=== PATIENT | female | born 2000 | race African-American/Black ===

== ENCOUNTER 2018-09-28 19:16 | Emergency (ER) | payer MEDICAID ==
[~2018-09-28] VITALS: Ht 157.5 cm; Wt 67.8 kg
[2018-09-28 21:37] VITALS: BP 112/60
[2018-09-28] MEDS ORDERED: ACETAMINOPHEN 325MG TABLET PO ONE (22:00)
== END 2018-09-28 23:20 | disposition home or self-care (01) ==
LOC: ER 19:16
DX: M25.512 Pain in left shoulder (principal); M25.552 Pain in left hip; M54.2 Cervicalgia; M54.5 Low back pain; F12.10 Cannabis abuse, uncomplicated; V79.50XA Passenger on bus injured in collision with unspecified motor vehicles in traffic accident, initial encounter; Y93.89 Activity, other specified; Y92.488 Other paved roadways as the place of occurrence of the external cause
CPT/HCPCS: 73030; 73502; 81025; 99283

== ENCOUNTER 2019-02-08 04:58 | Emergency (ER) | payer MEDICAID ==
[~2019-02-08] VITALS: Ht 157.5 cm; Wt 67.0 kg
[2019-02-08] MEDS ORDERED: FAMOTIDINE 20MG/2ML VIAL IV STA (07:28)
[2019-02-08] MEDS ORDERED: ONDANSETRON HCL 4MG/2ML INJ IV STA (07:28)
[2019-02-08] MEDS ORDERED: SODIUM CHLORIDE 0.9% 1,000 ML IV ONE (07:28)
[2019-02-08 07:31] LABS: COLOR URINE YELLOW (YELLOW); KETONES URINE NEGATIVE (NEGATIVE); LEUKOCYTE ESTERASE URINE NEGATIVE (NEGATIVE); NITRITE URINE NEGATIVE (NEGATIVE); OCCULT BLOOD URINE NEGATIVE (NEGATIVE); PROTEIN URINE NEGATIVE (NEGATIVE); SPECIFIC GRAVITY URINE 1.029 (1.005-1.030); UROBILINOGEN URINE 0.2 E.U./dL (0.2-1.0)
[2019-02-08 07:51] LABS: CLARITY URINE SL HAZY (CLEAR)
[2019-02-08] MEDS ORDERED: KETOROLAC 30MG/ML VIAL IV ONE (08:15)
[2019-02-08 08:16] LABS: BASOPHILS % 0.3 % (0.0-2.0); EOSINOPHILS % 1.7 % (0.0-5.0); HEMOGLOBIN. 14.7 g/dL (12.0-16.0); LYMPHOCYTES % 11.6 % (20.0-50.0); MEAN CORPUSCULAR HEMOGLOBIN 29.6 pg (28.0-32.0); MEAN CORPUSCULAR VOLUME 86.5 fL (81.0-99.0); MEAN PLATELET VOLUME 8.8 fl (7.4-10.4); MONOCYTES % 6.5 % (2.0-8.0); NEUTROPHILS % 79.9 % (40.0-76.0); PLATELET 276 x1000/uL (130-400); RED BLOOD CELL COUNT 4.97 mill/uL (4.2-5.4); RED CELL DISTRIBUTION WIDTH 13.6 % (11.6-14.6)
[2019-02-08 08:17] LABS: PROTHROMBIN TIME 10.2 sec (9.6-11.0)
[2019-02-08 08:23] LABS: CHLORIDE 109 mEq/L (98-107); HCG SCREEN NEGATIVE
[2019-02-08] MEDS ORDERED: MAGNESIUM/ALUMINUM HYDROXIDE/SIMETHICONE 30ML UDC PO ONE (11:15)
[2019-02-08 11:16] VITALS: BP 100/60
== END 2019-02-08 11:17 | disposition home or self-care (01) ==
LOC: ER 05:47
DX: R10.30 Lower abdominal pain, unspecified (principal); R11.10 Vomiting, unspecified; R19.7 Diarrhea, unspecified; F12.90 Cannabis use, unspecified, uncomplicated
CPT/HCPCS: 36415; 74176; 80053; 81003; 81025; 83690; 84703; 85025; 85610; 96361; 96374; 96375; 99284; J1885; J2405; J3490; J7030; Z7610